=== PATIENT | female | born 1985 | race Caucasian/White ===

== ENCOUNTER → 2016-09-20 14:17 | Observation (INO) ==
[2016-09-20 13:49] LABS: Basophils # 0.1 K/mcL (0.0-0.2); Basophils % 0.5 %; Eosinophils % 0.3 %; Hematocrit 35.3 % (35.3-44.9); Hemoglobin 12.1 g/dL (11.5-15.4); Immature Granulocytes % 0.4 % (0-4); Immature Platelets 5.2 % (1.1-6.1); Lymphocytes # 1.8 K/mcL (0.6-4.6); Lymphocytes % 15.8 %; Mean Corpuscular HGB Conc 34.3 g/dL (31.6-35.5); Mean Corpuscular Hemoglobin 30.6 pg (28.0-33.3); Mean Corpuscular Volume 89.1 fL (83.0-100.0); Mean Platelet Volume 10.3 fL (9.4-12.4); Monocytes # 0.6 K/mcL (0.0-1.3); Monocytes % 4.8 %; Platelet Count 329 K/mcL (140-400); Red Blood Count 3.96 M/mcL (3.82-4.97); Red Cell Distribution Width 13.1 % (11.5-14.5); Segmented Neutrophils % 78.2 %
[2016-09-20 13:59] LABS: Protein/Creatinine Ratio,Urine 0.15 mg/mg (0-0.20)
[2016-09-20 14:02] LABS: Alanine Aminotransferase 14 Units/L (0-55); Aspartate Amino Transferase 17 Units/L (5-34); BUN/Creatinine Ratio 14 (6-26); Blood Urea Nitrogen 9 mg/dL (7-20); Lactate Dehydrogenase 246 Units/L (159-327); Uric Acid 5.7 mg/dL (2.6-6.0); eGFR For African Americans > 60 (> 60); eGFR For Non-African Americans > 60 (> 60)
[2016-09-20 14:05] LABS: Bilirubin,Urine Negative (Negative); Blood,Urine Negative (Negative); Clarity,Urine Cloudy (Clear); Color,Urine Yellow (Yellow); Glucose,Urine (UA) Normal (Normal); Ketones,Urine Negative (Negative); Leukocyte Esterase,Urine Negative (Negative); Nitrite,Urine Negative (Negative); Protein,Urine Negative (Neg-Trace); Specific Gravity,Urine 1.017 (1.010-1.025); Urobilinogen,Urine Normal (Normal)
[2016-09-20 14:09] LABS: Bacteria,Urine None Seen per hpf (None-Few); Hyaline Casts,Urine None Seen per lpf (None-Few); RBC,Urine 0-3 per hpf (0-3); Squamous Epithelial Cell,Urine Many per lpf (None-Few); WBC,Urine 0-3 per hpf (0-3)
--- NOTE | 2016-09-20 14:17 | Discharge Summary ---
Date of Encounter: 09/20/16 Time of Encounter: 14:16 - Discharge Diagnosis (1) High blood pressure affecting in third trimester, antepartum Priority: Primary Status: Acute Comments: Patient sent over for PIH evaluation from the office. patient reports good movement, denies vaginal bleeding or leaking of fluid, headache, blurred vision, other visual changes or epigastric pain, Blood pressures in labor and delivery were 135/88, 137/88. All PIH labs negative, P/C ratio .15. Patient discharged to home given education on labor precautions, when to return to triage for evaluation, when to call provider. Patient verbalizes understanding (2) 37 weeks gestation of Priority: Primary Status: Acute (3) NST (non-stress test) reactive Priority: Secondary Status: Acute Comments: Baseline 130 Data Procedures and tests throughout hospitalization: Laboratory Tests 09/20/16 09/20/16 09/20/16 13:29 13:29 13:29 WBC 11.6 H RBC 3.96 Hgb 12.1 Hct 35.3 MCV 89.1 MCH 30.6 MCHC 34.3 RDW 13.1 Plt Count 329 MPV 10.3 Immature Gran % 0.4 Seg Neutrophils % 78.2 Lymphocytes % 15.8 Monocytes % 4.8 Eosinophils % 0.3 Basophils % 0.5 Neutrophils # 9.0 H Lymphocytes # 1.8 Monocytes # 0.6 Eosinophils # 0.0 Basophils # 0.1 Immature Plt Fraction 5.2 BUN 9 Creatinine 0.65 Est GFR ( Amer) > 60 Est GFR (Non-Af Amer) > 60 BUN/Creatinine Ratio 14 Uric Acid 5.7 AST 17 ALT 14 Lactate Dehydrogenase 246 Urine Color Yellow Urine Clarity Cloudy A Urine pH 6.0 Ur Specific [place] 1.017 Urine Protein Negative Urine Glucose (UA) Normal Urine Ketones Negative Urine Blood Negative Urine Nitrite Negative Urine Bilirubin Negative Urine Urobilinogen Normal Ur Leukocyte Esterase Negative Urine Microscopic RBC 0-3 Urine Microscopic WBC 0-3 Ur Squamous Epith Cells Many H Urine Bacteria None Seen Hyaline Casts None Seen Urine Creatinine Protein/Creatinin Ratio Urine Total Protein 09/20/16 13:38 WBC RBC Hgb Hct MCV MCH MCHC RDW Plt Count MPV Immature Gran % Seg Neutrophils % Lymphocytes % Monocytes % Eosinophils % Basophils % Neutrophils # Lymphocytes # Monocytes # Eosinophils # Basophils # Immature Plt Fraction BUN Creatinine Est GFR ( Amer) Est GFR (Non-Af Amer) BUN/Creatinine Ratio Uric Acid AST ALT Lactate Dehydrogenase Urine Color Urine Clarity Urine pH Ur Specific [place] Urine Protein Urine Glucose (UA) Urine Ketones Urine Blood Urine Nitrite Urine Bilirubin Urine Urobilinogen Ur Leukocyte Esterase Urine Microscopic RBC Urine Microscopic WBC Ur Squamous Epith Cells Urine Bacteria Hyaline Casts Urine Creatinine 60 Protein/Creatinin Ratio 0.15 Urine Total Protein 9 Labs on day of discharge: Labs from last 24 hours 09/20/16 09/20/16 09/20/16 13:38 13:29 13:29 WBC 11.6 H RBC 3.96 Hgb 12.1 Hct 35.3 MCV 89.1 MCH 30.6 MCHC 34.3 RDW 13.1 Plt Count 329 MPV 10.3 Immature Gran % 0.4 Seg Neutrophils % 78.2 Lymphocytes % 15.8 Monocytes % 4.8 Eosinophils % 0.3 Basophils % 0.5 Neutrophils # 9.0 H Lymphocytes # 1.8 Monocytes # 0.6 Eosinophils # 0.0 Basophils # 0.1 Immature Plt Fraction 5.2 BUN 9 Creatinine 0.65 Est GFR ( Amer) > 60 Est GFR (Non-Af Amer) > 60 BUN/Creatinine Ratio 14 Uric Acid 5.7 AST 17 ALT 14 Lactate Dehydrogenase 246 Urine Color Urine Clarity Urine pH Ur Specific [place] Urine Protein Urine Glucose (UA) Urine Ketones Urine Blood Urine Nitrite Urine Bilirubin Urine Urobilinogen Ur Leukocyte Esterase Urine Microscopic RBC Urine Microscopic WBC Ur Squamous Epith Cells Urine Bacteria Hyaline Casts Urine Creatinine 60 Protein/Creatinin Ratio 0.15 Urine Total Protein 9 09/20/16 13:29 WBC RBC Hgb Hct MCV MCH MCHC RDW Plt Count MPV Immature Gran % Seg Neutrophils % Lymphocytes % Monocytes % Eosinophils % Basophils % Neutrophils # Lymphocytes # Monocytes # Eosinophils # Basophils # Immature Plt Fraction BUN Creatinine Est GFR ( Amer) Est GFR (Non-Af Amer) BUN/Creatinine Ratio Uric Acid AST ALT Lactate Dehydrogenase Urine Color Yellow Urine Clarity Cloudy A Urine pH 6.0 Ur Specific [place] 1.017 Urine Protein Negative Urine Glucose (UA) Normal Urine Ketones Negative Urine Blood Negative Urine Nitrite Negative Urine Bilirubin Negative Urine Urobilinogen Normal Ur Leukocyte Esterase Negative Urine Microscopic RBC 0-3 Urine Microscopic WBC 0-3 Ur Squamous Epith Cells Many H Urine Bacteria None Seen Hyaline Casts None Seen Urine Creatinine Protein/Creatinin Ratio Urine Total Protein Date of admission: 09/20/16 13:10 Primary care physician: PCP NO Discharging clinician: Yuni Guzmán Anticipated date of discharge: 09/20/16 - Patient Status Disposition: Home, Self-Care Condition: Good Functional capacity at discharge: independent ambulation Overall status at discharge: patient is back to baseline - Discharge Instructions Follow Up With: DALTON,PCP [Primary Care Provider] - Yuni Guzmán, CNM [Advanced Practice Nurse] - Additional Instructions: LABOR AND DELIVERY DISCHARGE INSTRUCTIONS Signs and Symptoms to be Reported to your Doctor Immediately: * Sudden gush, continuous or intermittent lead of fluid from vagina (note the time of gush and color of fluid) * Onset of bright red vaginal bleeding with or without pain (if you had a vaginal exam during this visit you may notice some dark red spotting. This is normal.) * Lower abdominal cramping or backache that is premenstrual-like feeling. * More than 6 contractions in one hour. * Burning during urination, having to urinate more frequently or pain in your mid-back. * A change in the baby's activity. This could be an increase or decrease in activity. * Severe headache which does not go away with tylenol. * Sudden swelling in the face, hands, arms and/or legs. * Upper abdominal pain - sometimes associated with heartburn or nausea and is not relieved by Maalox, Mylanta or Tums. * Dizziness or blurred vision or visual disturbances (seeing stars/lights). * Kick Counts One hour after a meal, lay down on one side in a quiet place. Count the number of bismark the baby moves during an hour. If less than 6 movements, notify your physician. Diet: *Force fluids - 8-10 tall glasses of fluid per day. May include popsicles and jello. *Limit caffeine - this includes chocolate, coffee, tea, any soft drink containing such as all bolivar, Bennie Yellow and Mountain Dew - Diet and Activity Activity: resume usual activities as tolerated Diet: regular diet Hospital Course HEAD GREENSKEEPER Time Attestation: Total time spent providing and/or coordinating discharge services: Exam - Constitutional General appearance IM: A&O X 3 - Cardiovascular Cardiovascular exam IM: Present: RRR, +S1, +S2 - GI/Abdominal GI/Abdominal exam IM: normal bowel sounds, soft - Extremities Exam Extremities exam IM: Present: normal capillary refill, normal inspection - Neurological Exam Neurological exam: normal gait, oriented X3, reflexes normal - Other Additional findings: +2 DTR - VTE Reasons for not Prescribing Prophylaxis: Medical contraindication
== END | disposition home or self-care (01) ==
LOC: 1NENULAB
PROVIDERS: ADMIT Advanced Practice Midwife; ATTEND Obstetrics & Gynecology

== ENCOUNTER 2016-09-25 13:10 | Inpatient (IN) ==
[2016-09-25 13:49] LABS: Basophils % 0.4 %; Eosinophils # 0.1 K/mcL (0.0-0.6); Eosinophils % 0.4 %; Hematocrit 36.7 % (35.3-44.9); Hemoglobin 12.4 g/dL (11.5-15.4); Immature Granulocytes % 0.5 % (0-4); Lymphocytes # 1.7 K/mcL (0.6-4.6); Mean Corpuscular HGB Conc 33.8 g/dL (31.6-35.5); Mean Corpuscular Hemoglobin 30.5 pg (28.0-33.3); Mean Corpuscular Volume 90.4 fL (83.0-100.0); Mean Platelet Volume 10.3 fL (9.4-12.4); Monocytes # 0.7 K/mcL (0.0-1.3); Monocytes % 5.7 %; Neutrophils # 8.8 K/mcL (1.6-8.9); Platelet Count 317 K/mcL (140-400); Red Blood Count 4.06 M/mcL (3.82-4.97); Red Cell Distribution Width 13.2 % (11.5-14.5)
[2016-09-25 13:55] LABS: Bilirubin,Urine Negative (Negative); Blood,Urine Negative (Negative); Clarity,Urine Clear (Clear); Color,Urine Yellow (Yellow); Glucose,Urine (UA) Normal (Normal); Ketones,Urine Negative (Negative); Leukocyte Esterase,Urine Negative (Negative); Nitrite,Urine Negative (Negative); Protein,Urine Negative (Neg-Trace); Specific Gravity,Urine 1.013 (1.010-1.025); Urobilinogen,Urine Normal (Normal)
[2016-09-25 13:59] LABS: Protein/Creatinine Ratio,Urine 0.24 mg/mg (0-0.20)
[2016-09-25 14:04] LABS: Alanine Aminotransferase 12 Units/L (0-55); Aspartate Amino Transferase 15 Units/L (5-34); BUN/Creatinine Ratio 16 (6-26); Blood Urea Nitrogen 11 mg/dL (7-20); Lactate Dehydrogenase 175 Units/L (159-327); Uric Acid 5.4 mg/dL (2.6-6.0); eGFR For African Americans > 60 (> 60); eGFR For Non-African Americans > 60 (> 60)
[2016-09-25] MEDS ORDERED: CeFAZolin Pre 2,000 MG/100 ML 2,000 MG/100 ML BAG IVPB ONE (14:57)
[2016-09-25] MEDS ORDERED: Famotidine 20 MG/2 ML VIAL IVP ONE (14:57)
[2016-09-25] MEDS ORDERED: Metoclopramide 10 MG/2 ML VIAL IVP ONE (14:57)
--- NOTE | 2016-09-25 14:57 | OB/GYN History & Physical ---
Date of Encounter: 09/25/16 Time of Encounter: 14:56 Assessment and Plan (1) 38 weeks gestation of Current visit: Yes Status: Acute (2) High blood pressure affecting in third trimester, antepartum Current visit: No Status: Acute Patient continues to have elevated blood pressure 160/90, 159/98, discussed with Dr. Douglass decision made to admit to labor and delivery and proceed with delivery. Breech presentation will plan for delivery. PIH labs negative. Plan of care care discussed with patient; patient in agreement Labs: B+, GBS negative, rubella immune, all other serologies negative History of Present Illness Chief complaint: elevated BP HPI: Ms. Jj is a 31 year old female sent over from the office today with elevated blood pressures. Patient reports good movement, denies vaginal bleeding leaking of fluid headache, visual changes, right upper gastric pain. with occasional elevated blood pressures, however all PIH labs were negative last week. Last ultrasound revealed breech presentation Past Med Surg Social Fam HX - Past Medical History Medical history: no medical history Psychiatric history: no psych history - Past Surgical History Surgical History: no surgical history - Social History Smoking Status: Current every day smoker Packs per day: 1/2pack daily Smokeless Tobacco Status: No Alcohol use: none Drug use: none - Family History Father Hx Family Cardiac Disorders: Yes (HTN) Obstetrical History - Pregnancies : 1 Para: 0 Term: 0 : 0 Ab's: 0 Livin Medications and Allergies Ferrous Sulfate [Iron] 1 tab PO DAILY 09/25/16 [History] Tablet 1 tab PO DAILY 09/25/16 [History] Allergies No Known Allergies Allergy (Verified 09/25/16 13:29) Exam - Constitutional Constitutional: well developed, well nourished, no acute distress, average body habitus - Neck Neck exam: full ROM - Lungs Respiratory exam: CTAB - Cardiovascular Cardiovascular exam: RRR, +S1, +S2 - Abdomen Abdomen: Present: bowel sounds normal, gravid, non tender - Extremities Deep Tendon Reflex Grade: 3+ Normal But Brisk Results Result Diagrams: 09/25/16 13:24 09/25/16 13:24 Abnormal lab results WBC 11.3 K/mcL (4.3-11.1) H 09/25/16 13:24 Protein/Creatinin Ratio 0.24 mg/mg (0-0.20) H 09/25/16 13:24 All other labs normal. - VTE Reasons for not Prescribing Prophylaxis: Medical contraindication
[2016-09-25] MEDS ORDERED: Oxytocin 20 units/ LR 1000 mL 20 UNIT/1,000 ML BAG IVC SCH (15:00)
[2016-09-25] MEDS ORDERED: Ringers Solution, Lactated 1,000 ML IVC SCH (15:00)
[2016-09-25] MEDS ORDERED: *HR* FentaNYL (PF) 100 MCG/2 ML VIAL ONE (16:07)
[2016-09-25] MEDS ORDERED: *HR* Morphine Sulfate/PF 5 MG/10 ML AMPUL ONE (16:07)
--- NOTE | 2016-09-25 16:14 | Anesthesia Evaluation PreOp ---
Date of Encounter: 09/25/16 Time of Encounter: 16:12 - Past History Planned Operation: Cardiac History: Denies any Significant Hx Pulmonary History: Denies Any Significant HX CORPORATE STAFF ACCOUNTANT History: Denies Any Significant HX Other Medical History: Denies Any Significant HX Anesthesia History: No Prior Anesthetic Complications, Past Anesthesia (None) : Yes ( breach presentation/Preeclamtic) Alcohol Use: none Drug use: none Medications and Allergies Ferrous Sulfate [Iron] 1 tab PO DAILY 09/25/16 [History] Tablet 1 tab PO DAILY 09/25/16 [History] Allergies No Known Allergies Allergy (Verified 09/25/16 13:29) - Meds/Allergy Pre-op Review Medications Reviewed: Yes Allergies Reviewed: Yes Beta Blockers on Current Med List: No Anesthesia Results - Labs 09/25/16 13:24 09/25/16 13:24 Anesthesia Exam O2 Sat Height 1.52 m Weight 73.9 kg Height: 5'1.5'' Weight: 162# NPO (# of Hours): Breakfast @ 10:30 09/25/2106 Pain Scale: 0 Pain Scale Used: Numeric (1 - 10) - HEENT Pupil (Motor): Pupils equal, EOMI Mallampati: II Teeth: Normal Oral Opening: Greater than 3 - CORPORATE STAFF ACCOUNTANT LOC: Oriented CORPORATE STAFF ACCOUNTANT Motor: Normal RUE, Normal LUE, Normal RLE, Normal LLE, Normal Face CORPORATE STAFF ACCOUNTANT Sensory: Normal: RUE, LUE, RLE, LLE, Face - Cardiac Rhythm: Regular Murmur: None JVD: No Carotid Bruit: No - Pulmonary Breath Sounds: bilateral Clear Respiratory Effort: Symmetrical Anesthesia Assess/Plan ASA Score: 2 Modified Luis Scale for Level of Consciousness: Cooperative, oriented, and tranquil Anesthetic Plan: Regional (Spinal) Autologous Blood: Yes Monitoring Plan: Standard Monitors Recovery Plan: PACU
--- NOTE | 2016-09-25 18:27 | Anesthesia Procedures ---
Date of Encounter: 09/25/16 Time of Encounter: 18:04 Procedures: Anesthesia - Epidural/Spinal Patient ID/Chart reviewed: Yes Patient examined: Yes OB Eval: : 1 OB Eval: Hx Para: 0 OB Eval: Contractions: Non-stressed pattern Consent Obtained: Yes Supplemental Oxygen: None/Room Air Site Prep: Aseptic Technique, Sterile prep and drape, Povidone-Iodine 1% Patient position: upright Local Anesthetic: Lidocaine 1% Amount of Local Anesthetic used: 3 Interspace Used: L4-L5 Blood: No CSF: Yes Paresthesia: No Spinal Needle Gauge: 25 Spinal Dose: see anesthesia record Procedure: successful on 1st attempt; patient tolerated procedure well; +swirl; VSS Vitals + FHT's: see anesthesia record
[2016-09-25] MEDS ORDERED: Ringers Solution, Lactated 1,000 ML ONE ×2 (18:28→19:58)
[2016-09-25] MEDS ORDERED: *HR* Oxytocin 10 UNIT/ML VIAL IM ONE (18:33)
--- NOTE | 2016-09-25 19:23 | Anesthesia Evaluation Post Op ---
Date of Encounter: 09/25/16 Time of Encounter: 19:22 - Vital Signs Vital Signs: 118/69, hr85, spo2 95%. RR14, T97.5F - Lungs Lungs: Clear Ascult./Percussion - Airway Airway: Non-obstructed - Cardiovascular Regular Rate - Mental Status Mental Status: Alert & Oriented, Answers Appropriately - Pain Pain Scale: 0 Pain Scale used: Numeric (1 - 10) - Nausea Vomiting Nausea Vomiting: Not Present - Hydration Hydration: NPO, Cerda catheter - Discharge PostOp Status: Transfer Patient to floor
--- NOTE | 2016-09-25 19:46 | OB/GYN Procedure Note ---
Section - Date of procedure: 09/25/16 Preop diagnosis: breech, other (Pre-Eclampsia) Post-op diagnosis: same Procedure: section, primary low transverse Surgeon: Deana Douglass Estimated blood loss (cc): 350 Anesthesiologist: Herberth Philip Wind Tunnel Mechanic: Munir Serna Anesthesia Type: Spinal section complications: none Disposition: L&D Recovery Room Specimens: Placenta - (s) Infant A Delivery Date: 09/25/16 Infant Delivery Time: 18:31 Presentation: breech Position: unknown Route of delivery: other Gender: Female Viability: Viable Pounds: 5 Ounces: 9 Gram Weight: 2.525 kg at 1 minute: 9 at 5 minutes: 9 Placenta: spontaneous, uterine exploration (No retained POC, no uterine malformations) Cord: 3 umbilical vessels - Narrative Narrative: The patient was brought to the operating room, sign in completed, who was then prepped and draped in the usual sterile fashion. A timeout was completed. A Pfannenstiel skin incision was then made and sharply dissected down to the fascia. The fascia was then incised in the midline and extended bluntly and sharply bilaterally. 2 straight [place] clamps are placed on the inferior fascial edge and the fascia was bluntly and sharply dissected away from rectus muscles, this was repeated superioThe patient was taken to the operating room and given spinal anesthesia. Timeout was completed after the patient was rly. The rectus muscles were bluntly and sharply bissected. Peritoneum was bluntly entered and extended bluntly superiorly and inferiorly. A bladder blade was placed to protect the bladder. The Vesicouterine peritoneum was incised with Metzenbaum scissors and extended laterally then the bladder flap was reflected inferiorly and the bladder blade was replaced to protect the bladder. A low transverse incision was then made in the lower uterine segment down to the amnion. This was then bluntly extended laterally then upward in a U fashion with bandage scissors bilaterally. The amnion was then bluntly entered with Allis clamp, clear fluid was seen, and the was delivered in amarilys breech presentation. The was vigorous and suctioned on the operating field. After delayed cord clamping, the was handed to the nursery care team. Cord blood was obtained and a cord segment was obtained. IV Pitocin was started. The placenta was delivered spontaneous and intact. The uterine Cavity was digitally inspected and noted to be clear and then was wiped clean with a moist lap sponge. Tubes and ovaries were inspected and found to be grossly normal. A ring clamp was used to dilate the cervix and then discarded off the operating field. Ring clamps were placed on the edge of the uterine incision and the uterine incision was closed using 0 Vicryl suture in a running locking fashion. A second imbricating layer completed the uterine closure. Good hemostasis was achieved. The pelvic cavity was copiously irrigated with sterile water and good hemostasis was again noted. Peritoneal edges and rectus muscles were inspected and good hemostasis was achieved. The fascia was then closed using an 0 PDS loop in a running nonlocking fashion. Subcutaneous tissue was irrigated with sterile water good hemostasis was achieved. The skin was then closed with 4-0 Vicryl in a subcuticular fashion. Benzoin and Steri-Strips were used to reinforce the skin incision. Cerda was noted to be draining clear yellow urine at the end of the procedure. All sponge and instrument counts were correct at the end of the procedure
[2016-09-25] MEDS ORDERED: Sennosides 8.6 MG TABLET PO PRN (19:52)
[2016-09-25] MEDS ORDERED: Metoclopramide 10 MG/2 ML VIAL IVP PRN (19:52)
[2016-09-25] MEDS ORDERED: Ondansetron 4 MG/2 ML VIAL IVP PRN (19:52)
[2016-09-25] MEDS ORDERED: Rho Immune Globulin 1,500 UNIT SYRINGE IM ONE (19:52)
[2016-09-25] MEDS ORDERED: Oxytocin 20 units/ LR 1000 mL 20 UNIT/1,000 ML BAG IVC ONE (19:58)
[2016-09-25] MEDS: Magnesium Sulfate 20 gm/500mL 20 GM/500 ML IV.SOLN IVC SCH (20:14)
[2016-09-25] MEDS: Oxytocin 20 units/ LR 1000 mL 20 UNIT/1,000 ML BAG IVC SCH (20:14)
[2016-09-25] MEDS ORDERED: *HR* HYDROmorphone (PF) 1 MG/ML SYRINGE IVP PRN (21:05)
[2016-09-26] MEDS ORDERED: Calcium Gluconate 1,000 MG/10 ML VIAL IVPB ONE (02:13)
[2016-09-26 03:48] LABS: Basophils # 0.1 K/mcL (0.0-0.2); Basophils % 0.3 %; Eosinophils # 0.1 K/mcL (0.0-0.6); Eosinophils % 0.4 %; Hematocrit 33.9 % (35.3-44.9); Hemoglobin 11.4 g/dL (11.5-15.4); Immature Granulocytes % 0.5 % (0-4); Lymphocytes % 13.6 %; Mean Corpuscular HGB Conc 33.6 g/dL (31.6-35.5); Mean Corpuscular Hemoglobin 30.7 pg (28.0-33.3); Mean Corpuscular Volume 91.4 fL (83.0-100.0); Mean Platelet Volume 10.2 fL (9.4-12.4); Monocytes # 0.8 K/mcL (0.0-1.3); Monocytes % 5.4 %; Neutrophils # 11.8 K/mcL (1.6-8.9); Platelet Count 262 K/mcL (140-400); Red Blood Count 3.71 M/mcL (3.82-4.97); Red Cell Distribution Width 13.2 % (11.5-14.5); Segmented Neutrophils % 79.8 %
[2016-09-26 04:04] LABS: Alanine Aminotransferase 9 Units/L (0-55); Aspartate Amino Transferase 17 Units/L (5-34); BUN/Creatinine Ratio 11 (6-26); Blood Urea Nitrogen 7 mg/dL (7-20); Lactate Dehydrogenase 236 Units/L (159-327); Uric Acid 5.7 mg/dL (2.6-6.0); eGFR For African Americans > 60 (> 60); eGFR For Non-African Americans > 60 (> 60)
[2016-09-26] MEDS: *HR* OxyCODONE/APAP 5/325 TABLET PO PRN ×4 (04:42→20:56)
[2016-09-26] MEDS: Magnesium Sulfate 20 gm/500mL 20 GM/500 ML IV.SOLN IVC SCH (06:55)
[2016-09-26] MEDS: Oxytocin 20 units/ LR 1000 mL 20 UNIT/1,000 ML BAG IVC SCH (08:45)
[2016-09-26] MEDS: Prenatal Vit/FA 1 EACH TABLET PO SCH (08:46)
[2016-09-26] MEDS: Simethicone 80 MG TAB.CHEW PO PRN ×2 (08:47→20:57)
--- NOTE | 2016-09-26 09:34 | OB/GYN Progress Note ---
Date of Encounter: 09/26/16 Time of Encounter: 09:29 - Assessment and Plan (1) Status post primary low transverse section Current Visit: Yes Status: Acute Primary c/s for breech presentation (2) PIH ( induced hypertension) Current Visit: Yes Status: Acute Patient currently on magnesium sulfate at 2 grams per hour BPs are stable Qualifiers: Trimester: third trimester Qualified Code(s): O13.3 - Gestational [ -induced] hypertension without significant proteinuria, third trimester Subjective - Subjective Principal diagnosis: Postop/ day 1 primary Interval history: Patient sitting up in bed. Patient reports cramping. Denies headache, dizziness or blurred vision. Urine output is good. urine in clear. light lochia noted. Patient reports: appetite normal (clear liquid diet, will advanced to regular), pain well controlled : doing well, nursing well (and bottle feeding) Objective - Vital Signs Latest vital signs: Vital Signs Temp Pulse Pulse Resp BP Pulse Ox 09/26/16 06:30 86 14 115/74 09/26/16 05:30 92 92 14 115/62 09/26/16 04:30 105 14 112/64 09/26/16 03:45 99 14 111/65 09/26/16 02:40 105 16 110/64 09/26/16 01:30 98.1 F 97 97 14 115/67 95 09/26/16 00:30 111 111 16 112/58 09/26/16 00:10 98.5 F 100 16 112/58 95 09/25/16 22:32 98.0 F 94 16 122/61 95 09/25/16 22:01 90 16 09/25/16 21:59 98.2 F 90 15 130/70 96 Intake and Output 09/25/16 09/26/16 09/26/16 23:59 07:59 15:59 Intake Total 0 / 0 500 / 500 1000 / 1000 Output Total 525 / 525 1900 / 1900 Balance -525 / -525 -1400 / -1400 1000 / 1000 Intake: IV Fluids 500 / 500 1000 / 1000 Magnesium Sulfate Premix 500 / 500 20 gm/500mL 20 gm In 500 ml @ 2 GM/HR 50 mls/hr IVC .Q10H [facility]Y Rx#: [id number] Pitocin 20 unit In 1,000 1000 / 1000 ml @ 125 mls/hr IVC .Q8H AMY Rx#:[id number] Oral 0 / 0 Output: Urine 1600 / 1600 Catheter 525 / 525 300 / 300 Other: Weight 71 kg 77.1 kg Patient Weight 09/26/16 23:59 Weight 77.1 kg - Exam Lungs: bilateral: normal Chest: Normal S1, Normal S2 Extremities: Present: normal Abdomen: Present: normal appearance, soft Incision: Present: normal, dry, intact, dressed Uterus: Present: normal, firm Fundal Height: 2 (U/2) Comments: DTR 2+ no clonus, no edema noted. EPCDs on bilateral lower extremities. - Labs Labs: Laboratory Results - last 24 hr 09/25/16 09/25/16 09/25/16 13:24 13:24 13:24 WBC 11.3 H RBC 4.06 Hgb 12.4 Hct 36.7 MCV 90.4 MCH 30.5 MCHC 33.8 RDW 13.2 Plt Count 317 MPV 10.3 Immature Gran % 0.5 Seg Neutrophils % 78.0 Lymphocytes % 15.0 Monocytes % 5.7 Eosinophils % 0.4 Basophils % 0.4 Neutrophils # 8.8 Lymphocytes # 1.7 Monocytes # 0.7 Eosinophils # 0.1 Basophils # 0.0 BUN 11 Creatinine 0.69 Est GFR ( Amer) > 60 Est GFR (Non-Af Amer) > 60 BUN/Creatinine Ratio 16 Uric Acid 5.4 AST 15 ALT 12 Lactate Dehydrogenase 175 Urine Color Urine Clarity Urine pH Ur Specific [place] Urine Protein Urine Glucose (UA) Urine Ketones Urine Blood Urine Nitrite Urine Bilirubin Urine Urobilinogen Ur Leukocyte Esterase Ur Culture Indicated? Urine Creatinine 33 Protein/Creatinin Ratio 0.24 H Urine Total Protein 8 09/25/16 09/26/16 09/26/16 13:24 03:32 03:32 WBC 14.8 H RBC 3.71 L Hgb 11.4 L Hct 33.9 L MCV 91.4 MCH 30.7 MCHC 33.6 RDW 13.2 Plt Count 262 MPV 10.2 Immature Gran % 0.5 Seg Neutrophils % 79.8 Lymphocytes % 13.6 Monocytes % 5.4 Eosinophils % 0.4 Basophils % 0.3 Neutrophils # 11.8 H Lymphocytes # 2.0 Monocytes # 0.8 Eosinophils # 0.1 Basophils # 0.1 BUN 7 Creatinine 0.65 Est GFR ( Amer) > 60 Est GFR (Non-Af Amer) > 60 BUN/Creatinine Ratio 11 Uric Acid 5.7 AST 17 ALT 9 Lactate Dehydrogenase 236 Urine Color Yellow Urine Clarity Clear Urine pH 7.0 Ur Specific [place] 1.013 Urine Protein Negative Urine Glucose (UA) Normal Urine Ketones Negative Urine Blood Negative Urine Nitrite Negative Urine Bilirubin Negative Urine Urobilinogen Normal Ur Leukocyte Esterase Negative Ur Culture Indicated? NO Urine Creatinine Protein/Creatinin Ratio Urine Total Protein
[2016-09-26] MEDS: Ibuprofen 600 MG TABLET PO PRN ×2 (12:56→22:54)
[2016-09-27] MEDS: *HR* OxyCODONE/APAP 5/325 TABLET PO PRN ×2 (02:51→08:50)
[2016-09-27 06:45] VITALS: BP 103/62
[2016-09-27] MEDS: Prenatal Vit/FA 1 EACH TABLET PO SCH (07:46)
[2016-09-27] MEDS: Ibuprofen 600 MG TABLET PO PRN (07:46)
--- NOTE | 2016-09-27 09:42 | Discharge Summary ---
Date of Encounter: 09/27/16 Time of Encounter: 09:41 - Discharge Diagnosis (1) PIH ( induced hypertension) Priority: Secondary Status: Acute Comments: Blood pressures stable Labs WNL No medication needed upon discharge POC per consult with Dr Douglass Qualifiers: Trimester: third trimester Qualified Code(s): O13.3 - Gestational [ -induced] hypertension without significant proteinuria, third trimester (2) Status post primary low transverse section Priority: Primary Status: Acute Comments: Patient doing well post op day 2. Pain is well controlled Denies difficulty urinating and is passing flatus Lochia is light without clots Patient is bottle feeding Discharge home today - Discharge Medications Prescriptions: OxyCODONE/APAP 5/325 [Percocet 5/325 MG] 1 each PO Q4HR PRN #30 tablet PRN Reason: Moderate pain 4-6 Ibuprofen [Motrin] 600 mg PO Q6HR PRN #60 tablet PRN Reason: Mild To Moderate Pain Docusate [Colace] 100 mg PO BID #30 capsule Ferrous Sulfate 325 mg PO DAILY #30 tablet Home Medications: Tablet 1 tab PO DAILY 09/25/16 [History] Docusate [Colace] 100 mg PO BID #30 capsule 09/27/16 [Rx] Ferrous Sulfate 325 mg PO DAILY #30 tablet 09/27/16 [Rx] Ibuprofen [Motrin] 600 mg PO Q6HR PRN #60 tablet 09/27/16 [Rx] OxyCODONE/APAP 5/325 [Percocet 5/325 MG] 1 each PO Q4HR PRN #30 tablet 09/27/16 [Rx] Simethicone [Gas-X] 80 mg PO TID PRN #0 tab.chew 09/27/16 [Rx] Allergies/Adverse Reactions: Allergies No Known Allergies Allergy (Verified 09/25/16 13:29) Data Procedures and tests throughout hospitalization: Laboratory Tests 09/25/16 09/25/16 09/25/16 13:24 13:24 13:24 WBC 11.3 H RBC 4.06 Hgb 12.4 Hct 36.7 MCV 90.4 MCH 30.5 MCHC 33.8 RDW 13.2 Plt Count 317 MPV 10.3 Immature Gran % 0.5 Seg Neutrophils % 78.0 Lymphocytes % 15.0 Monocytes % 5.7 Eosinophils % 0.4 Basophils % 0.4 Neutrophils # 8.8 Lymphocytes # 1.7 Monocytes # 0.7 Eosinophils # 0.1 Basophils # 0.0 BUN 11 Creatinine 0.69 Est GFR ( Amer) > 60 Est GFR (Non-Af Amer) > 60 BUN/Creatinine Ratio 16 Uric Acid 5.4 AST 15 ALT 12 Lactate Dehydrogenase 175 Urine Color Urine Clarity Urine pH Ur Specific [place] Urine Protein Urine Glucose (UA) Urine Ketones Urine Blood Urine Nitrite Urine Bilirubin Urine Urobilinogen Ur Leukocyte Esterase Ur Culture Indicated? Urine Creatinine 33 Protein/Creatinin Ratio 0.24 H Urine Total Protein 8 09/25/16 09/26/16 09/26/16 13:24 03:32 03:32 WBC 14.8 H RBC 3.71 L Hgb 11.4 L Hct 33.9 L MCV 91.4 MCH 30.7 MCHC 33.6 RDW 13.2 Plt Count 262 MPV 10.2 Immature Gran % 0.5 Seg Neutrophils % 79.8 Lymphocytes % 13.6 Monocytes % 5.4 Eosinophils % 0.4 Basophils % 0.3 Neutrophils # 11.8 H Lymphocytes # 2.0 Monocytes # 0.8 Eosinophils # 0.1 Basophils # 0.1 BUN 7 Creatinine 0.65 Est GFR ( Amer) > 60 Est GFR (Non-Af Amer) > 60 BUN/Creatinine Ratio 11 Uric Acid 5.7 AST 17 ALT 9 Lactate Dehydrogenase 236 Urine Color Yellow Urine Clarity Clear Urine pH 7.0 Ur Specific [place] 1.013 Urine Protein Negative Urine Glucose (UA) Normal Urine Ketones Negative Urine Blood Negative Urine Nitrite Negative Urine Bilirubin Negative Urine Urobilinogen Normal Ur Leukocyte Esterase Negative Ur Culture Indicated? NO Urine Creatinine Protein/Creatinin Ratio Urine Total Protein Date of admission: 09/25/16 13:10 Primary care physician: Judit Robledo CNP Discharging clinician: Tawanna Frank Anticipated date of discharge: 09/27/16 - Patient Status Disposition: Home, Self-Care Condition: Good Functional capacity at discharge: independent ambulation Overall status at discharge: patient is back to baseline - Discharge Instructions Follow Up With: Judit Robledo CNP [Primary Care Provider] - Deana Douglass MD [Partnered Physician] - - Diet and Activity Activity: increase activity as tolerated Diet: regular diet Hospital Course Reason for admission: IUP at term, pre-eclampsia Delivery: section Episiotomy: none Laceration: none Other procedures: none complications: none Discharge diagnosis: IUP at term delivered, pre-eclampsia [place] baby: female Time Attestation: Total time spent providing and/or coordinating discharge services: Time Spent: Less than 30 minutes - VTE Reasons for not Prescribing Prophylaxis: Medical contraindication Documentation of Mechanical Device: Intermittent pneumatic compression device Exam - Constitutional Vitals: Temp Pulse Resp BP Pulse Ox 98 F 77 18 103/62 95 09/27/16 06:44 09/27/16 06:44 09/27/16 06:44 09/27/16 06:44 09/27/16 06:44 General appearance IM: cooperative, A&O X 3, pleasant - Respiratory Respiratory exam: Present: CTAB - Cardiovascular Cardiovascular exam IM: Present: RRR, +S1, +S2 - GI/Abdominal GI/Abdominal exam IM: normal bowel sounds, soft Incision: normal, dry, intact - Rectal Rectal exam: deferred - Uterine Tone: Firm Uterus Position: At Umbilicus, Midline - Extremities Exam Extremities exam IM: Present: normal capillary refill, normal inspection, radial pulses palpable and symetrical - Neurological Exam Neurological exam: alert, oriented X3
== END 2016-09-27 13:03 | disposition home or self-care (01) | DRG 540 ==
LOC: 1NENULAB → OBSVTOIN 13:10 → 1NENUOBS 21:36
PROVIDERS: ADMIT Obstetrics & Gynecology; ATTEND Obstetrics & Gynecology